=== PATIENT | male | born 1980 | race American Indian/Alaskan Native ===

== ENCOUNTER 2018-05-16 10:16 | Emergency (ER) | payer SELFPAY ==
[2018-05-16 10:57] VITALS: BP 120/72
[2018-05-16] MEDS ORDERED: CLEOCIN PO ONE (11:35)
[2018-05-16] MEDS ORDERED: DELTASONE PO ONE (11:35)
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
[2018-05-16] MEDS ORDERED: LIDOCAINE VISCOUS 2% PO ONE (11:53)
== END 2018-05-16 12:27 | disposition home or self-care (01) ==
LOC: ED 10:16
DX: J03.90 Acute tonsillitis, unspecified (principal); F17.200 Nicotine dependence, unspecified, uncomplicated
CPT/HCPCS: 99282; J7512